=== PATIENT | male | born 1995 | race American Indian/Alaskan Native ===

== ENCOUNTER 2020-09-26 21:12 | Emergency (ER) | payer MEDICAID ==
[2020-09-26 21:19] VITALS: BP 139/97; PULSE 95
[2020-09-26 21:47] LABS: CORONAVIRUS COVID-19 RAPID NEGATIVE (NEGATIVE)
[2020-09-26] MEDS ORDERED: methylPREDNISolone Sodium Succinate 125 MG/2 ML SDV IM STA (22:05)
--- NOTE | 2020-09-26 22:07 | EDM.PDOC ---
ED HPI GENERAL MEDICAL PROBLEM - General Chief Complaint: General Stated Complaint: SOB, Cough Time Seen by Provider: 09/26/20 21:40 Source of Information: Reports: Patient History Limitations: Reports: No Limitations - History of Present Illness INITIAL COMMENTS - FREE TEXT/NARRATIVE: Stepan is a 25 yo male who presents to the ED via private vehicle with complaints of a productive cough, shortness of breath and wheezing for the last month. States after it initially started he did go in to [facility] and states he was diagnosed with pneumonia. He admits they never did a chest x-ray and gave him a Zpack. He did receive a ProAir inhaler as well. States it did get better but the last two weeks it has been getting worse again. States he did get both Moderna vaccines for COVID 19. States he has recently been using over the counter therapies, which hasn't seemed to help. Cough is worse in the morning. - Related Data Allergies Allergy/AdvReac Type Severity Reaction Status Date / Time cefaclor [From [facility]] Allergy Itching Verified 09/26/20 21:19 Home Meds: Home Meds Albuterol Sulfate [Proair Hfa] 8.5 gm IH Q4HR PRN 09/26/20 [History] Past Medical History - Past Health History Medical/Surgical History: Denies Medical/Surgical History HEENT History: Reports: None Cardiovascular History: Reports: None Respiratory History: Reports: None Musculoskeletal History: Reports: Other (See Below) Other Musculoskeletal History: bones feel sore in the joints in the morning and then gets better Psychiatric History: Reports: ADHD Hematologic History: Reports: None Oncologic (Cancer) History: Reports: Other (See Below) Other Oncologic History: states he has had weight loss that he has not tried to loose. Decreased appetite. Dermatologic History: Reports: Other (See Below) Other Dermatologic History: acne Social & Family History - Family History Family Medical History: No Pertinent Family History - Tobacco Use Tobacco Use Status *Q: Never Tobacco User Second Hand Smoke Exposure: No - Caffeine Use Caffeine Use: Reports: Coffee, Soda - Sexual History Sexual History: Reports: Multiple Partners, Sexually Active - Living Situation & Occupation Living situation: Reports: with Family Occupation: Student ED ROS GENERAL - Review of Systems Review Of Systems: See Below Constitutional: Reports: No Symptoms HEENT: Reports: No Symptoms Respiratory: Reports: Shortness of Breath, Wheezing, Cough Cardiovascular: Reports: No Symptoms Endocrine: Reports: No Symptoms GI/Abdominal: Reports: No Symptoms : Reports: No Symptoms Musculoskeletal: Reports: No Symptoms Skin: Reports: No Symptoms Neurological: Reports: No Symptoms Psychiatric: Reports: No Symptoms ED EXAM, GENERAL - Physical Exam Exam: See Below Exam Limited By: No Limitations General Appearance: Alert, No Apparent Distress Ears: Normal External Exam, Normal TMs Nose: Normal Inspection, Normal Mucosa, No Blood Throat/Mouth: Normal Voice, No Airway Compromise Head: Atraumatic, Normocephalic Neck: Normal Inspection Respiratory/Chest: No Respiratory Distress, Lungs Clear, Normal Breath Sounds, No Accessory Muscle Use. No: Rhonchi, Wheezing Cardiovascular: Regular Rate, Rhythm, No Edema, No Murmur Extremities: Normal Inspection Neurological: Alert, Oriented Psychiatric: Normal Affect, Normal Mood Skin Exam: Warm, Dry, Intact, Normal Color, No Rash Course - Vital Signs Last Recorded V/S: Last Vital Signs Temp 99.2 F 09/26/20 21:17 Pulse 95 09/26/20 21:17 Resp 20 09/26/20 21:17 BP 139/97 H 09/26/20 21:17 Pulse Ox 99 09/26/20 21:17 - Orders/Labs/Meds Orders: Active Orders 24 hr Category Date Time Status Chest 2V [CR] Stat Exams 09/26/20 21:21 Taken Labs: Laboratory Tests 09/26/20 Range/Units 21:21 SARS CoV-2 RNA Rapid GABI Negative (NEGATIVE) Departure - Departure Time of Disposition: 22:15 Disposition: Home, Self-Care 01 Clinical Impression: Bronchitis - Discharge Information Instructions: Acute Bronchitis, Adult, [id number] Additional Instructions: 1) Zpack - script written and use as directed 2) Prednisone 20mg daily for 5 days, script written 3) Continue to use rescue inhaler 4) Follow up with primary if cough persists, return to ED if increased shortness of breath 5) Recommend seeing primary for recheck blood pressure next week, borderline Sepsis Event Note (ED) - Evaluation Sepsis Screening Result: No Definite Risk - Focused Exam Vital Signs: Vital Signs Temp Pulse Resp BP Pulse Ox 09/26/20 21:17 99.2 F 95 20 139/97 H 99 - Problem List & Annotations (1) Bronchitis SNOMED Code(s): 88780416 Code(s): J40 - BRONCHITIS, NOT SPECIFIED ACUTE OR CHRONIC Status: Acute Current Visit: Yes - My Orders Last 24 Hours: My Active Orders 09/26/20 21:21 Chest 2V [CR] Stat - Assessment/Plan Last 24 Hours: My Active Orders 09/26/20 21:21 Chest 2V [CR] Stat Plan: Chest x-ray reviewed, no infiltrate noted. Will treat with repeat Zpack and prednisone. May continue to use inhaler. If symptoms persist, recommend reevaluation with primary. Blood pressure was elevated adn will have follow up with primary as well. Repeat blood pressure was 137/92.
== END 2020-09-26 22:32 | disposition home or self-care (01) ==
LOC: CC.ED 21:12
DX: J40 Bronchitis, not specified as acute or chronic (principal); Z20.822 Contact with and (suspected) exposure to COVID-19; Z88.1 Allergy status to other antibiotic agents
CPT/HCPCS: 71046; 96372; 99283-25; J2930; U0002